=== PATIENT | female | born 1945 | race Caucasian/White ===

== ENCOUNTER → 2020-04-05 | Outpatient (CLI) | payer OTHER ==
[~2020-04-05] MED LIST: ADULT LOW DOSE81 MG PO; AMLODIPINE BESYL5 MG PO; BYSTOLIC10 MG PO; CELEBREX 200 M200 MG PO; CO Q-1010 MG PO; DIOVAN HCT 3201 EAC1 PO; GLUCOPHAGE500 MG PO; LEXAPRO 10 MG T10 MG PO; LIPITOR80 MG PO; MULTIVITAMINS; NEXIUM40 MG PO; PLAVIX 75 MG TA75 MG PO; POTASSIUM20 PO; ZETIA10 MG PO; ZINC CHELATE50 MG PO
== END ==
LOC: SJCVC 11:38
DX: I48.21 Permanent atrial fibrillation (principal); I48.0 Paroxysmal atrial fibrillation; R94.31 Abnormal electrocardiogram [ECG] [EKG]; I25.10 Atherosclerotic heart disease of native coronary artery without angina pectoris; I10 Essential (primary) hypertension; E78.00 Pure hypercholesterolemia, unspecified; D68.59 Other primary thrombophilia; I63.40 Cerebral infarction due to embolism of unspecified cerebral artery; C67.9 Malignant neoplasm of bladder, unspecified; E11.8 Type 2 diabetes mellitus with unspecified complications; E66.9 Obesity, unspecified; Z79.899 Other long term (current) drug therapy; Z82.49 Family history of ischemic heart disease and other diseases of the circulatory system

== ENCOUNTER → 2020-12-12 | Outpatient (CLI) | payer OTHER | LOC: SJCVCIMAG 09:54 | PROVIDERS: ATTEND Internal Medicine Cardiovascular Disease | DX: I08.1 Rheumatic disorders of both mitral and tricuspid valves (principal); I11.9 Hypertensive heart disease without heart failure; E11.9 Type 2 diabetes mellitus without complications; I25.10 Atherosclerotic heart disease of native coronary artery without angina pectoris; I63.40 Cerebral infarction due to embolism of unspecified cerebral artery; C67.9 Malignant neoplasm of bladder, unspecified; I48.21 Permanent atrial fibrillation; D68.59 Other primary thrombophilia; E78.00 Pure hypercholesterolemia, unspecified; E66.9 Obesity, unspecified; Z90.49 Acquired absence of other specified parts of digestive tract; Z96.653 Presence of artificial knee joint, bilateral; Z98.890 Other specified postprocedural states; Z88.8 Allergy status to other drugs, medicaments and biological substances; Z79.899 Other long term (current) drug therapy; Z86.73 Personal history of transient ischemic attack (TIA), and cerebral infarction without residual deficits; Z82.49 Family history of ischemic heart disease and other diseases of the circulatory system ==

== ENCOUNTER → 2021-03-11 | Outpatient (CLI) | payer OTHER | LOC: LAB 13:51 | PROVIDERS: ATTEND Specialist | DX: Z01.812 Encounter for preprocedural laboratory examination (principal); Z20.822 Contact with and (suspected) exposure to COVID-19 ==

== ENCOUNTER → 2021-03-15 | Outpatient (CLI) | payer OTHER ==
[~2021-03-15] VITALS: Ht 157.5 cm; Wt 81.6 kg
[~2021-03-15] MED LIST changes: +CITRUCEL500 MG PO; +GLUCOSAMINE PO; +JANUVIA25 MG PO; +LEXAPRO 10 MG T10 M1 PO; +METOPROLOL SUCC50 MG PO; +PEPCID AC20 MG PO; +PROBIOTIC1 EAC7 PO; +SPIRONOLACTONE25 MG PO; +VITAMIN B-121000 MC2 PO; +XARELTO15 MG PO; +ZYRTEC 10 MG TA10 MG PO; +[UNRECOGNIZED DRUG - OTHER] PO
--- NOTE | ~2021-03-15 | P ---
[facility] [address] PROCEDURE REPORT Name: MITZY MCMILLAN Room #: REG [facility].#: [id number] Admission: 03/15/21 Attend Phys: Nikhil Salgado Discharge: Date of : 45 Report #: [id number] THIS REPORT FOR: cc: Casandra Randhawa MD,Nikhil Galarza MD, MD ~ DOC #: [id number] cc: Casandra Randhawa MD, MD Nikhil Bullock MD DATE OF SERVICE: 03/15/2021 PROCEDURE PERFORMED: Colonoscopy with polypectomies. HISTORY OF PRESENT ILLNESS: The patient is a 76-year-old female with a history of previous colon polyps. Also, family history of colon cancer. She has been on Xarelto for cardiac disease. This has been held for the last few days. Upper endoscopy was just performed showing grade A erosive esophagitis and dilation was performed. No evidence of bleeding. Plan is for colonoscopy. DESCRIPTION OF PROCEDURE: The risks and benefits of the procedure were explained to the patient, those risks including but not limited to bleeding, perforation and the risk of sedation. She understood these risks and gave informed consent. Sedation was given using propofol per anesthesia. Next, a digital rectal exam was initially performed, which was normal. Next, using a standard Olympus colonoscope, the scope was placed in the patient's anus and advanced under direct vision to the cecum. The overall prep was good and the cecum with a total of 3 polyps, the smaller polyps were 3-4 mm in size and removed with cold forceps, the larger was 8 mm and removed by snare cautery. In the ascending colon, 2 small 4 mm sessile polyps were also noted, both were removed with cold forceps. Transverse colon, a 4 mm sessile polyp removed with cold forceps. Random colon biopsies were obtained today to rule out the possibility of microscopic colitis. Multiple diverticula were noted in the sigmoid colon, otherwise normal. The rectal mucosa was normal. On retroflexion, no abnormalities were noted. The scope was then withdrawn and the procedure terminated. The patient tolerated the procedure well. IMPRESSION: 1. Multiple colonic polyps as described above. 2. Sigmoid diverticulosis. 3. Otherwise, normal colonoscopy. RECOMMENDATIONS: 1. Await biopsy results. 2. Repeat colonoscopy in [address] [address] PROCEDURE REPORT Name: DEYNAIRAMITZY Heidy Room #: REG [facility] Booth#: [id number] Admission: 03/15/21 Attend Phys: Nikhil Salgado Discharge: Date of : 45 Report #: [id number] Thank you for allowing me to participate in her care. Nikhil Hendrickson MD CCM/NGOZI By: [phone] Nikhil Hendrickson MD /jeffrey
--- NOTE | ~2021-03-15 | O ---
[facility] [place] [address] OPERATIVE REPORT Name: MITZY MCMILLAN Room #: REG [facility].#: [id number] Admission: 03/15/21 Attend Phys: Nikhil Salgado Discharge: Date of : 45 Report #: [id number] THIS REPORT FOR: cc: Casandra Randhawa MD, Laurie Dawn MD McElhinney, Christian C. MD ~ DOC #: [id number] cc: MD Nikhil Thibodeaux MD DATE OF SERVICE: 03/15/2021 PROCEDURE PERFORMED: Colonoscopy with polypectomies. HISTORY OF PRESENT ILLNESS: The patient is a 76-year-old female with a history of colon polyps and a family history of colon cancer. Also complains of loose stools on a fairly regular basis, averages 2-3 per day. Denies any blood in her stools. DESCRIPTION OF PROCEDURE: The risks and benefits of the procedure were explained to the patient, those risks including but not limited to bleeding, perforation and the risk of sedation. She understood these risks and gave informed consent. Sedation was given using propofol per Anesthesia. Next, a digital rectal exam was initially performed, which was normal. Next using a standard Olympus colonoscope, the scope was placed in the patient's anus and advanced under direct vision to the cecum. The overall prep was good. In the cecum, there were 3 polyps. The smallest was 3 mm in size and removed by cold forceps. The larger were 5-7 mm in size and both removed by snare cautery. In the ascending colon, 2 polyps were noted, one was 4 mm and removed by cold forceps, the other was 6 mm and removed by snare cautery. In the transverse colon, a 5 mm sessile polyp was removed by snare cautery. Descending colon was normal. Multiple diverticula were noted in the sigmoid colon. No evidence of inflammation, otherwise normal. The rectal mucosa was normal. On retroflexion, small nonbleeding internal hemorrhoids were noted. During the procedure, random biopsies were obtained today to rule out the possibility of microscopic colitis. The scope was then withdrawn and the procedure terminated. The patient tolerated the procedure well. IMPRESSION: 1. Multiple small colonic polyps as described above. 2. Sigmoid diverticulosis. 3. Internal hemorrhoids. 4. Otherwise, normal colonoscopy. RECOMMENDATIONS: 1. Await biopsy results. [address] [address] OPERATIVE REPORT Name: MITZY MCMILLAN Room #: REG [facility] Booth#: [id number] Admission: 03/15/21 Attend Phys: Nikhil Salgado Discharge: Date of : 45 Report #: [id number] 2. Repeat colonoscopy in 3 years. If biopsies are positive for microscopic, we will explain potential treatment options to the patient. Otherwise, we did discuss possibly using Imodium on a regular basis or consider a trial of Questran. Thank you for allowing me to participate in her care. Nikhil Hendrickson MD CCM/IFLIPE By: [phone] Nikhil Hendrickson MD /nt
--- NOTE | ~2021-03-15 | P ---
[facility] [place] [address] PROCEDURE REPORT Name: MITZY MCMILLAN Room #: REG [facility].#: [id number] Admission: 03/15/21 Attend Phys: Nikhil Salgado Discharge: Date of : 45 Report #: [id number] THIS REPORT FOR: cc: Casandra Randhawa MD, Laurie Dawn MD McElhinney, Christian C. MD ~ DOC #: [id number] cc: Casandra Randhawa MD, MD Nikhil Bullock MD DATE OF SERVICE: 03/15/2021 PROCEDURE PERFORMED: Upper endoscopy with esophageal dilation. HISTORY OF PRESENT ILLNESS: The patient is a 76-year-old female with a history of gastroesophageal reflux disease with intermittent dysphagia. Plan is for upper endoscopy. She is also scheduled for colonoscopy today. History of colon polyps and family history of colon cancer, intermittent diarrhea. DESCRIPTION OF PROCEDURE: The risks and benefits of the procedure were explained to the patient, those risks including but not limited to bleeding, perforation and the risk of sedation. She understood these risks and gave informed consent. Sedation was given using propofol per anesthesia. Next, using a standard Olympus upper endoscope, the scope was placed in the patient's mouth and advanced under direct vision through the esophagus, stomach and into the second portion of the duodenum. The upper and mid esophagus was normal in appearance. In the distal esophagus, grade A erosive esophagitis was noted. No evidence of bleeding. Overall, the gastric mucosa was normal. The pylorus was normal and patent. The duodenal bulb, first and second portion were all normal. The scope was then brought back up into the patient's stomach and a Savary guidewire was inserted through the scope, leaving the guidewire in place as the scope was then withdrawn. Next, a 48-Scottish Savary dilation of the esophagus was then performed without difficulty. The wire and dilator were removed. The scope was reintroduced into the patient's stomach. There was no evidence of mucosal tear after dilation. The scope was then withdrawn and the procedure terminated. The patient tolerated the procedure well. IMPRESSION: 1. Grade A erosive esophagitis. 2. Status post esophageal dilation. 3. Otherwise, normal upper endoscopy. RECOMMENDATIONS: 1. Recommend daily PPI therapy. 2. Observe the patient post-dilation. 3. We will proceed with colonoscopy next today. [address] [address] PROCEDURE REPORT Name: MITZY MCMILLAN Room #: REG [facility] Emmy#: [id number] Admission: 03/15/21 Attend Phys: Nikhil Salgado Discharge: Date of : 45 Report #: [id number] Thank you for allowing me to participate in her care. Nikhil Hendrickson MD CCM/JENNIFER By: 1148 2150 Nikhil Hendrickson, /jeffrey
--- NOTE | 2021-03-18 17:06 | PATH ---
[facility] [place] [address] PATHOLOGY RPT PROCEDURE Name: MONSERRAT OKEEFE Room #: REG [facility]..#: [id number] Admission: 03/15/21 Date of : 45 Discharge: Report #: [id number] Path Case #: [id number] [facility] Accession Number: [id number] . 01 Material submitted: . PART A: cecum - CECAL POLYPS X3 BIOPSY AND SNARES. Modifiers: X3 PART B: colon - ASCENDING COLON POLYPS X2 BIOPSY. Modifiers: ascending, X2 PART C: colon - RANDOM COLON BIOPSY PART D: colon - DESCENDING COLON POLYP. Modifiers: descending . 01 Clinical history: . EGD/COLONOSCOPY DYSPHAGIA, FAMILY HISTORY OF COLORECTAL CANCER FOR C- RULE OUT MICROSCOPIC COLITIS . 02 Diagnosis: A. Polyps x3, cecal polyp, endoscopic biopsy: - Tubular adenoma identified in multiple fragments sampled. - Negative for high-grade dysplasia. . B. Polyps x2, ascending colon polyps, endoscopic biopsy: - Tubular adenoma identified in two fragments. - Negative for high-grade dysplasia. - One fragment showing reactive changes and no evidence of dysplasia. . C. Large intestine mucosa, random colon, endoscopic biopsy: - Nonspecific reactive changes, see comment. - Negative for microscopic colitis. - Negative for dysplasia or malignancy. . D. Polyp, descending colon polyp, endoscopic biopsy: - Tubular adenoma. - Negative for high-grade dysplasia. (IUV:[facility]o; 03/18/2021) [facility] [place] 03/18/2021 1437 Local . 02 Comment: C. Sections of colon biopsy tissues show crypts at regular intervals and no increase in cellularity of lamina propria. There are no granulomas. The collagen layer underneath the epithelium is not thickened. There is no distortion in crypt architecture as well. There is no evidence of dysplasia. (IUV:wicho; 03/18/2021) . 02 Electronically signed: . Rayna Muniz MD, Pathologist NPI- [id number] [place] [address] PATHOLOGY RPT PROCEDURE Name: DEYANIRAMONSERRAT Room #: REG [facility].#: [id number] Admission: 03/15/21 Date of : 45 Discharge: Report #: [id number] Path Case #: [id number] . 01 Gross description: . A. Received in formalin labeled "Monserrat [place] cecal polyps further designated by the [facility] cecal polyps x3 biopsy and snares" is a fragment of rider-brown soft tissue measuring in aggregate 1.1 x 0.4 x 0.4 cm. The specimen is submitted entirely in A1. . B. Received in formalin labeled "Monserrat [place] ascending colon polyps" is a fragment of rider-brown soft tissue measuring in aggregate 0.9 x 0.5 x 0.3 cm. The specimen is submitted entirely in B1. . C. Received in formalin labeled "Monserrat [place] random colon biopsy rule out microscopic colitis" is a fragment of rider-brown soft tissue measuring in aggregate 2.2 x 0.4 x 0.3 cm. The specimen is submitted entirely in C1. . D. Received in formalin labeled "Monserrat [place] descending colon polyp" is a fragment of rider-brown soft tissue measuring 0.4 x 0.4 x 0.3 cm. The specimen is submitted entirely in D1. ([facility]; 03/16/2021) . . GZA/GZA 03/18/2021 1432 Local . 02 Pathologist provided ICD-10: D12.0, D12.2, D12.4, Z12.11 . 02 CPT . 532159, 197622, 096645, 296400 Specimen Comment: A courtesy copy of this report has been sent to [phone], [phone] Specimen Comment: [id number] Specimen Comment: Report sent to / DR HOLBROOK Performed at: [address], [place] [id number] MD Rickey Mccarty MD Phone: [phone] Performed at: [address] [id number] MD Rayna Muniz MD Phone: [phone]
== END | disposition home or self-care (01) ==
LOC: GI 06:14
PROVIDERS: ATTEND Specialist
DX: R19.7 Diarrhea, unspecified (principal); D12.0 Benign neoplasm of cecum; D12.2 Benign neoplasm of ascending colon; D12.4 Benign neoplasm of descending colon; K57.30 Diverticulosis of large intestine without perforation or abscess without bleeding; K64.8 Other hemorrhoids; K22.10 Ulcer of esophagus without bleeding; K21.9 Gastro-esophageal reflux disease without esophagitis; I12.9 Hypertensive chronic kidney disease with stage 1 through stage 4 chronic kidney disease, or unspecified chronic kidney disease; E11.22 Type 2 diabetes mellitus with diabetic chronic kidney disease; N18.30 Chronic kidney disease, stage 3 unspecified; E78.00 Pure hypercholesterolemia, unspecified; I48.91 Unspecified atrial fibrillation; F32.9 Major depressive disorder, single episode, unspecified; Z86.010 Personal history of colon polyps; Z80.0 Family history of malignant neoplasm of digestive organs; Z98.890 Other specified postprocedural states; Z79.899 Other long term (current) drug therapy; Z96.651 Presence of right artificial knee joint; Z86.73 Personal history of transient ischemic attack (TIA), and cerebral infarction without residual deficits; Z85.51 Personal history of malignant neoplasm of bladder; Z79.01 Long term (current) use of anticoagulants; R13.10 Dysphagia, unspecified
CPT/HCPCS: 62110; 62900

== ENCOUNTER → 2021-05-08 | Outpatient (CLI) | payer OTHER | LOC: SJCVCIMAG 07:06 | PROVIDERS: ATTEND Internal Medicine Cardiovascular Disease | DX: I65.23 Occlusion and stenosis of bilateral carotid arteries (principal); R94.31 Abnormal electrocardiogram [ECG] [EKG]; I25.10 Atherosclerotic heart disease of native coronary artery without angina pectoris; I48.21 Permanent atrial fibrillation; E78.00 Pure hypercholesterolemia, unspecified; I10 Essential (primary) hypertension; E11.9 Type 2 diabetes mellitus without complications; I63.40 Cerebral infarction due to embolism of unspecified cerebral artery; D68.59 Other primary thrombophilia; E66.9 Obesity, unspecified; Z90.49 Acquired absence of other specified parts of digestive tract; Z88.2 Allergy status to sulfonamides; Z88.8 Allergy status to other drugs, medicaments and biological substances; Z79.82 Long term (current) use of aspirin; Z79.899 Other long term (current) drug therapy; Z86.73 Personal history of transient ischemic attack (TIA), and cerebral infarction without residual deficits; Z82.49 Family history of ischemic heart disease and other diseases of the circulatory system ==

== ENCOUNTER → 2021-05-16 | Outpatient (CLI) | payer OTHER | LOC: SJCVCIMAG 07:41 | PROVIDERS: ATTEND Internal Medicine Cardiovascular Disease | DX: I48.91 Unspecified atrial fibrillation (principal); I49.3 Ventricular premature depolarization; R06.00 Dyspnea, unspecified; I25.10 Atherosclerotic heart disease of native coronary artery without angina pectoris; E11.9 Type 2 diabetes mellitus without complications; E78.5 Hyperlipidemia, unspecified; I10 Essential (primary) hypertension; Z79.899 Other long term (current) drug therapy ==

== ENCOUNTER → 2022-01-16 | Outpatient (CLI) | payer OTHER | LOC: SJCVC 11:21 | PROVIDERS: ATTEND Internal Medicine Cardiovascular Disease | DX: R94.31 Abnormal electrocardiogram [ECG] [EKG] (principal); I48.91 Unspecified atrial fibrillation; I25.10 Atherosclerotic heart disease of native coronary artery without angina pectoris; I10 Essential (primary) hypertension; E78.00 Pure hypercholesterolemia, unspecified; I63.40 Cerebral infarction due to embolism of unspecified cerebral artery; D68.59 Other primary thrombophilia; C67.9 Malignant neoplasm of bladder, unspecified; Z90.49 Acquired absence of other specified parts of digestive tract; Z96.651 Presence of right artificial knee joint; Z96.652 Presence of left artificial knee joint; Z88.1 Allergy status to other antibiotic agents; Z88.8 Allergy status to other drugs, medicaments and biological substances; Z79.82 Long term (current) use of aspirin; Z79.899 Other long term (current) drug therapy ==